=== PATIENT | male | born 1990 | race Caucasian/White ===

== ENCOUNTER 2019-12-13 12:22 | Emergency (ER) | payer OTHER ==
[~2019-12-13] VITALS: Ht 190.5 cm; Wt 106.8 kg
[2019-12-13] MEDS ORDERED: METF-960 PO (12:27)
[2019-12-13 13:22] VITALS: BP 143/99
== END 2019-12-13 14:02 | disposition left against medical advice (07) ==
LOC: EMS 12:31
DX: R51 Headache (principal); Z53.21 Procedure and treatment not carried out due to patient leaving prior to being seen by health care provider